=== PATIENT | male | born 2000 | race Caucasian/White ===

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

== ENCOUNTER 2019-01-19 06:16 | Emergency (ER) | payer SELFPAY ==
[~2019-01-19] VITALS: Ht 167.6 cm; Wt 80.7 kg
[~2019-01-19 06:16] MED LIST changes: +ZANTAC 150150 MG PO
[2019-01-19] MEDS ORDERED: TAMIFLU 75MG CA75 MG PO (07:49)
== END 2019-01-19 07:51 | disposition home or self-care (01) ==
LOC: ED 06:16
DX: J11.1 Influenza due to unidentified influenza virus with other respiratory manifestations (principal); F17.200 Nicotine dependence, unspecified, uncomplicated

== ENCOUNTER 2020-11-15 10:06 | Emergency (ER) | payer SELFPAY ==
[~2020-11-15] VITALS: Ht 165.1 cm; Wt 75.7 kg
[~2020-11-15 10:06] MED LIST changes: +TAMIFLU 75MG CA75 MG PO
[2020-11-15] MEDS ORDERED: ZOFRAN4 MG PO (10:37)
[2020-11-15] MEDS ORDERED: IMODIUM MULTI-1 EACH PO (10:37)
== END 2020-11-15 10:50 | disposition home or self-care (01) ==
LOC: ED 10:06
DX: A08.4 Viral intestinal infection, unspecified (principal); Z79.899 Other long term (current) drug therapy

== ENCOUNTER 2022-03-08 08:49 | Emergency (ER) | payer SELFPAY ==
[~2022-03-08] VITALS: Ht 167.6 cm; Wt 90.7 kg
[~2022-03-08 08:49] MED LIST changes: +IMODIUM MULTI-1 EACH PO; +ZOFRAN4 MG PO
== END 2022-03-08 09:50 | disposition home or self-care (01) ==
LOC: ED 08:49
DX: H57.11 Ocular pain, right eye (principal)

== ENCOUNTER 2024-09-09 18:16 | Emergency (ER) | payer BC ==
[~2024-09-09] VITALS: Ht 165.1 cm; Wt 99.8 kg
[2024-09-09] MEDS ORDERED: CEPHALEXIN 500 MG CAP PO ONE (19:05)
[2024-09-09] MEDS ORDERED: Tdap Vaccine 0.5 ML SYR (Adult Vaccine) IM ONE (19:05)
[2024-09-09] MEDS ORDERED: CEPHALEXIN500 M1 PO (21:28)
== END 2024-09-09 21:39 | disposition home or self-care (01) ==
LOC: ED 18:16
DX: S81.031A Puncture wound without foreign body, right knee, initial encounter (principal); W22.8XXA Striking against or struck by other objects, initial encounter; Y93.89 Activity, other specified; Y92.89 Other specified places as the place of occurrence of the external cause; Y99.8 Other external cause status